=== PATIENT | male | born 1960 | race African-American/Black ===

== ENCOUNTER 2018-10-23 06:06 | Emergency (ER) | payer MEDICAID ==
[~2018-10-23] VITALS: Ht 195.6 cm; Wt 100.0 kg
[~2018-10-23 06:06] MED LIST: AMOX1TAB64; CIPR500T87
--- NOTE | 2018-10-23 06:20 | NUR ---
Patient brought in by EMS for visual and auditory hallucinations following methamphetamine use at 0300 this morning. Patient is unsure at this time if he is suicidal or homicidal. Patient reports a history of schizophrenia for which he is not currently taking medication. Flat affect, compliant but seemingly tense at time of triage, frequently looking around the room, difficulty following simple tasks. Patient currently changing into gown and providing urine sample.
[2018-10-23] MEDS ORDERED: LORazepam 1MG TABLET PO ONE (06:30)
[2018-10-23 06:40] LABS: BASOPHILS # (AUTO) 0.08 x10^3/uL (0-0.1); BASOPHILS % (AUTO) 1 % (0-1); EOSINOPHILS # (AUTO) 0.17 x10^3/uL (0-0.4); EOSINOPHILS % (AUTO) 2 % (1-7); LYMPHOCYTES # (AUTO) 2.26 x10^3/uL (1-3.4); LYMPHOCYTES % (AUTO) 24 % (22-44); MD NO; MEAN CORPUSCULAR HEMOGLOBIN 31.3 pg (27.5-34.5); MEAN CORPUSCULAR HGB CONC 33.2 g/dL (33.2-36.2); MEAN CORPUSCULAR VOLUME 94.2 fL (81-97); MEAN PLATELET VOLUME 8.1 fL (7.4-10.4); MONOCYTES # (AUTO) 0.39 x10^3/uL (0.2-0.8); MONOCYTES % (AUTO) 4 % (2-9); NEUTROPHILS # (AUTO) 6.55 x10^3/uL (1.8-6.8); NEUTROPHILS % (AUTO) 69 % (42-75); PLATELET COUNT 337 x10^3/uL (130-400); RED BLOOD COUNT 4.89 x10^6/uL (4.38-5.82); RED CELL DISTRIBUTION WIDTH 14.3 % (9.4-14.8)
[2018-10-23] MEDS ORDERED: LORazepam 1MG TABLET ONE (06:41)
--- NOTE | 2018-10-23 06:47 | NUR ---
Patient in a safe room with doors down, sitter performing q 15 minute safety checks
[2018-10-23 06:53] LABS: ALANINE AMINOTRANSFERASE 30 U/L (12-78); ALBUMIN 4.4 g/dL (3.4-5.0); ANION GAP 10 mmol/L (5-15); CALCIUM 9.7 mg/dL (8.5-10.1); CHLORIDE 102 mmol/L (98-107); CREATININE 1.05 mg/dL (0.7-1.3)
--- NOTE | 2018-10-23 06:54 | NUR ---
Bedside report to NOLVIA Ribeiro. Patient awake, resting in [facility], no complaints or requests at this time.
[2018-10-23 06:55] LABS: ALKALINE PHOSPHATASE 94 U/L (45-117); BILIRUBIN,TOTAL 1.4 mg/dL (0.2-1.0); TOTAL PROTEIN 8.3 g/dL (6.4-8.2)
[2018-10-23 06:58] LABS: SALICYLATE LEVEL < 1.7 mg/dL (2.8-20.0)
[2018-10-23 06:59] LABS: ACETAMINOPHEN < 2 mcg/mL (10-30)
--- NOTE | 2018-10-23 07:50 | NUR ---
PT RESTING ON GURNEY, ASSESMENT COMPLETED. PT AWARE OF NEED TO PROVIDE URINE FOR UA. PT APEARS ANXIOUS AND STATES HE IS HAVING VISUAL AND AUDITORY HALLUCINATIONS. PT DENIES ANY COMMAND HALLUCINATIONS. PT ASKS IF THERE IS ANYTHING UNDER THE BED, OR ANYONE ELSE IN THE ROOM. PT TOLD HE IS IN A SAFE PLACE WHILE IN THE ED. ROOM SECURE. SITTER IN PLACE. VSS. RESP EVEN AND UNLABORED. SKIN WARM/DRY/ELASTIC. ALL CONCERNS ADRESSED.
--- NOTE | 2018-10-23 08:41 | NUR ---
PT PROVIDED WITH MEAL TRAY. PT AMBULATORY TO BATHROOM WITH STEADY GAIT FOR URINE SAMPLE.
--- NOTE | 2018-10-23 09:04 | NUR ---
[facility] called
[2018-10-23 09:13] LABS: CULTURE INDICATED? NO; MICROSCOPIC NOT IND
[2018-10-23 09:18] LABS: AMPHETAMINE SCREEN, URINE Positive (Negative); BARBITURATE SCREEN, URINE Negative (Negative); BENZODIAZEPINE SCREEN, URINE Negative (Negative); CANNABINOID SCREEN, URINE Positive (Negative); COCAINE SCREEN, URINE Negative (Negative); METHADONE SCREEN, URINE Negative (Negative); OPIATE SCREEN, URINE Negative (Negative)
--- NOTE | 2018-10-23 09:37 | NUR ---
PT SITTING ON GROUND IN CORNER OF ROOM. PT ASKED TO RETURN TO [facility], PT STATES HE WANTS TO REMAIN SEATED ON THE GROUND. SITTER IN PLACE, ROOM SECURED. RESP EVEN AND UNLABORED.
[2018-10-23] MEDS ORDERED: LORazepam 2 MG/ML, 1ML ONE (10:05)
[2018-10-23] MEDS ORDERED: ZIPRASIDONE 20 MG INJ IM ONE ×2 (10:05→10:30)
--- NOTE | 2018-10-23 10:17 | NUR ---
LATE ENTRY FOR 1145 - PT PACING IN HALLWAY. REDIREDTED TO ROOM. PT APEARS ANXIOUS, STATES HE IS "SEEING THINGS" IN HIS ROOM AND BEHIND HIS WALL. PT ASKED FOR MEDICATION TO CALM HIM DOWN. NOTIFIED. NEW ORDERS RECIEVED.
[2018-10-23] MEDS ORDERED: LORazepam 2 MG/ML, 1ML IM ONE (10:30)
--- NOTE | 2018-10-23 10:31 | NUR ---
[facility] FROM [facility] ON SITE FOR PT ASSESSMENT
--- NOTE | 2018-10-23 12:32 | NUR ---
PT PROVIDED WITH MEAL TRAY. SITTER IN PLACE.
--- NOTE | 2018-10-23 13:29 | NUR ---
PT RESTING ON GURNEY, AROUSABLE BY VOICE. VSS. NADN. SITTER IN PLACE.
--- NOTE | 2018-10-23 13:57 | NUR ---
PT AMBULATORY WITH STEADY GAIT IN HALLWAY. NADN AT THIS TIME.
--- NOTE | 2018-10-23 14:37 | NUR ---
[facility] CALLED FOR TRANSPORT WANG INTAKE
--- NOTE | 2018-10-23 16:40 | NUR ---
MEAL TRAY PROVIDED TO MADAN LAMBERT. SITTER IN PLACE WITH EYES ON.
--- NOTE | 2018-10-23 18:04 | NUR ---
[facility] NO LONGER ABLE TO TAKE PT TODAY. PT TO BE DC'D HOME AND FOLLOW UP WITH [facility] TOMORROW.
[2018-10-23 18:11] VITALS: BP 178/98
--- NOTE | 2018-10-23 18:13 | NUR ---
Patient/Caregiver given discharge instructions and they have confirmed that they understand the instructions. Patient ambulatory with steady gait. PT PROVIDED WITH [employer] [facility] FOR SAFE TRANSPORT HOME. PT TO FOLLOW UP WITH [facility] IN THE AM. PT LEFT WITH ALL PERSONAL BELONGINGS.
== END 2018-10-23 18:27 | disposition home or self-care (01) ==
LOC: ED 08:48
DX: F33.9 Major depressive disorder, recurrent, unspecified (principal); F15.10 Other stimulant abuse, uncomplicated; R44.0 Auditory hallucinations
CPT/HCPCS: 36415; 80053; 80307; 80329; 81003; 85025; 96372; 99284; J2060; J3486; G0480

== ENCOUNTER 2020-01-12 20:32 | Emergency (ER) | payer MEDICAID ==
[~2020-01-12] VITALS: Ht 195.6 cm; Wt 99.4 kg
--- NOTE | 2020-01-12 21:19 | NUR ---
Patient presents to ER c/o auditory hallucinations. Patient is supposed to take Zyprexa regularly but has not taken it since August. Patient states the hallucinations are talking about doing things to him which is making him paranoid. Patient is in NAD. Respirations even and unlabored.
[2020-01-12] MEDS ORDERED: LORazepam 2 MG/ML, 1ML IM STA (21:25)
[2020-01-12] MEDS ORDERED: LORazepam 2 MG/ML, 1ML ONE (21:45)
[2020-01-12 22:15] VITALS: BP 147/87
--- NOTE | 2020-01-12 22:51 | NUR ---
Discharge instructions given. All questions and concerns addressed. Patient ambulatory with a steady gait. Belongings with patient. Security called to escort patient out as he was not willing to leave.
== END 2020-01-12 22:53 | disposition home or self-care (01) ==
LOC: ED 22:02 → MERGE 22:02 → ED 22:53
DX: F15.959 Other stimulant use, unspecified with stimulant-induced psychotic disorder, unspecified (principal); F20.9 Schizophrenia, unspecified; F41.9 Anxiety disorder, unspecified; I10 Essential (primary) hypertension; E11.9 Type 2 diabetes mellitus without complications; F17.210 Nicotine dependence, cigarettes, uncomplicated
CPT/HCPCS: 82962; 96372; 99283; J2060

== ENCOUNTER 2020-10-14 11:28 | Emergency (ER) | payer MEDICAID ==
[~2020-10-14] VITALS: Ht 195.6 cm; Wt 102.4 kg
--- NOTE | 2020-10-14 11:47 | NUR ---
PATIENT WALKED BACK FROM TRIAGE WITH CHIEF C/O LEFT UPPER TOOTH PAIN X1 MONTH. PATIENT STATES PAIN HAS GOTTEN WORSE, AND HE IS UNABLE TO GET INTO A DENTIST UNTIL DECEMBER. PATIENT ALSO STATES HE HAS PRESSURE BEHIND HIS LEFT EYE AND A MELGAR. MADAN, CALL LIGHT WITHIN REACH.
--- NOTE | 2020-10-14 12:04 | NUR ---
ER PROVIDER AT BEDSIDE FOR EVALUATION.
[2020-10-14] MEDS ORDERED: KETOROLAC 30 MG/1 ML IM ONE (12:30)
[2020-10-14] MEDS ORDERED: KETOROLAC 60 MG/2 ML ONE (12:32)
[2020-10-14 12:35] VITALS: BP 144/97
--- NOTE | 2020-10-14 12:45 | NUR ---
Patient given discharge instructions and prescriptions and they have confirmed that they understand the instructions. Patient stable and ambulatory with steady gait from ED to private vehicle.
== END 2020-10-14 12:46 | disposition home or self-care (01) ==
LOC: ED 12:35
DX: K08.89 Other specified disorders of teeth and supporting structures (principal); R51.9 Headache, unspecified; I10 Essential (primary) hypertension; E11.9 Type 2 diabetes mellitus without complications; F17.200 Nicotine dependence, unspecified, uncomplicated; Z76.0 Encounter for issue of repeat prescription
CPT/HCPCS: 96372; 99283; J1885

== ENCOUNTER 2021-02-05 06:09 | Emergency (ER) | payer MEDICAID ==
[~2021-02-05] VITALS: Ht 195.6 cm; Wt 90.3 kg
[2021-02-05 06:27] VITALS: BP 141/88
--- NOTE | 2021-02-05 06:40 | NUR ---
pt ambulated to room. c/o blisters to hands. MD to bedside to eval pt, and orders received.
[2021-02-05] MEDS ORDERED: NEOSPORIN OINT. PKT 1 PACKET ONE (06:41)
--- NOTE | 2021-02-05 06:44 | NUR ---
MD TO BEDSIDE TO EVAL PT. ORDERS RECEIVED, AND NEOSPORIN PLACED ON BLISTERS ON BOTH HANDS, AND BANDAIDS PLACED. PT SLEEPING. NO ACUTE DISTRESS.
--- NOTE | 2021-02-05 06:48 | NUR ---
REPORT AND CARE TO MIKALA DE SOUZA.
== END 2021-02-05 07:24 | disposition home or self-care (01) ==
LOC: ED 06:39
DX: S60.410A Abrasion of right index finger, initial encounter (principal); S60.414A Abrasion of right ring finger, initial encounter; S60.512A Abrasion of left hand, initial encounter; I10 Essential (primary) hypertension; F17.200 Nicotine dependence, unspecified, uncomplicated; X58.XXXA Exposure to other specified factors, initial encounter; Y93.89 Activity, other specified; Y92.89 Other specified places as the place of occurrence of the external cause; Y99.8 Other external cause status
CPT/HCPCS: 99282